=== PATIENT | male | born 1985 | race Caucasian/White ===

== ENCOUNTER 2018-03-20 20:00 | Emergency (ER) | payer OTHER ==
[2018-03-20] MEDS ORDERED: Sodium Chloride 0.9% 10 ML Syringe FLUSH PRN (20:22)
[2018-03-20] MEDS ORDERED: Ondansetron 4 MG/2 ML SDV IVPUSH ONE (20:28)
[2018-03-20] MEDS ORDERED: Sodium Chloride 0.9% 1,000 ML IV SCH (20:55)
[2018-03-20 21:07] LABS: CHLORIDE,CL 101 mmol/L (98-107); SODIUM,NA 138 mmol/L (136-145)
--- NOTE | 2018-03-20 21:52 | EDM.PDOC ---
ED HPI GENERAL MEDICAL PROBLEM - General Chief Complaint: General Stated Complaint: dizziness Time Seen by Provider: 03/20/18 20:10 Source of Information: Reports: Patient History Limitations: Reports: No Limitations - History of Present Illness INITIAL COMMENTS - FREE TEXT/NARRATIVE: Patient is a 32-year-old year who is seen in the ER with chief complaint of left ear right ear pain unable to hear vertebral and severe nausea this been going on for 3 days patient what was seen 3 days ago by the chiropractor and neck manipulation was done according to patient Onset: Gradual Duration: Day(s): (3 days), Getting Worse Location: Reports: Head, Generalized Quality: Reports: Ache, Same as Previous Episode (Approximately 6 months ago) Severity: Moderate Improves with: Reports: Medication, Rest Worsens with: Reports: None Context: Reports: Other (Viral illness) Associated Symptoms: Reports: Nausea/Vomiting 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 [No Known Home Meds] 03/20/18 [History] Past Medical History - Past Surgical History HEENT Surgical History: Reports: Oral Surgery Social & Family History - Tobacco Use Smoking Status *Q: Former Smoker Used Tobacco, but Quit: Yes Month/Year Tobacco Last Used: 2007 ED ROS GENERAL - Review of Systems Review Of Systems: See Below Constitutional: Reports: No Symptoms HEENT: Reports: Other (Tinnitus) Respiratory: Reports: Shortness of Breath, Cough Cardiovascular: Reports: No Symptoms Endocrine: Reports: No Symptoms GI/Abdominal: Reports: Nausea : Reports: No Symptoms Musculoskeletal: Reports: No Symptoms Skin: Reports: No Symptoms Neurological: Reports: No Symptoms ED EXAM, GENERAL - Physical Exam Exam: See Below Exam Limited By: No Limitations General Appearance: Alert, WD/WN, No Apparent Distress Eye Exam: Bilateral Eye: EOMI, PERRL Ears: Normal External Exam, Hearing Loss Ear Exam: Right Ear: Swelling, Tenderness, TM Red, TM Bulging Nose: Normal Inspection, Normal Mucosa, No Blood Throat/Mouth: Normal Inspection, Normal Lips, Normal Teeth, Normal Gums, Normal Oropharynx, Normal Voice, No Airway Compromise Head: Atraumatic, Normocephalic Neck: Normal Inspection, Supple, Non-Tender, Full Range of Motion Respiratory/Chest: No Respiratory Distress, Lungs Clear, Normal Breath Sounds, No Accessory Muscle Use, Chest Non-Tender Cardiovascular: Normal Peripheral Pulses, Regular Rate, Rhythm, No Edema, No Gallop, No JVD, No Murmur, No Rub GI/Abdominal: Normal Bowel Sounds, Soft, Non-Tender, No Organomegaly, No Distention, No Abnormal Bruit, No Mass (Male) Exam: Deferred Rectal (Males) Exam: Deferred Back Exam: Normal Inspection, Full Range of Motion, NT Extremities: Normal Inspection, Normal Range of Motion, Non-Tender, Normal Capillary Refill, No Pedal Edema Neurological: Alert, Oriented, CN II-XII Intact, Normal Cognition, Normal Gait, Normal Reflexes, No Motor/Sensory Deficits Psychiatric: Normal Affect, Normal Mood Course - Vital Signs Last Recorded V/S: Last Vital Signs Temp 97.5 F 03/20/18 20:01 Pulse 80 03/20/18 20:14 Resp 18 03/20/18 20:14 BP 137/83 03/20/18 20:14 Pulse Ox 100 03/20/18 20:14 - Orders/Labs/Meds Orders: Active Orders 24 hr Category Date Time Status CULTURE BLOOD [BC] Stat Lab 03/20/18 20:30 Received CULTURE BLOOD [BC] Stat Lab 03/20/18 20:37 Received Sodium Chloride 0.9% [Saline Flush] Med 03/20/18 20:22 Active 10 ml FLUSH ASDIRECTED PRN Blood Culture x2 Reflex Set [OM.PC] Stat Oth 03/20/18 20:21 Ordered Saline Lock Insert [OM.PC] Stat Oth 03/20/18 20:22 Ordered Medication Orders Sodium Chloride (Saline Flush) 10 ml FLUSH ASDIRECTED PRN PRN Reason: Keep Vein Open Labs: Laboratory Tests 03/20/18 03/20/18 Range/Units 20:30 20:30 WBC 8.2 (4.0-10.2) K/uL RBC 5.35 (4.33-5.41) M/uL Hgb 16.5 (13.1-16.8) g/dL Hct 46.8 (39.0-49.0) % MCV 87.5 (84.0-98.0) fL MCH 30.8 (28.2-33.3) pg MCHC 35.3 (31.7-36.0) g/dL RDW 12.2 (11.2-14.1) % Plt Count 241 (150-350) K/uL Neut % (Auto) 73.6 (45.0-80.0) % Lymph % (Auto) 17.8 (10.0-50.0) % [place] % (Auto) 7.4 (2.0-14.0) % Eos % (Auto) 1.0 (0.0-5.0) % Baso % (Auto) 0.2 (0.0-2.0) % Neut # (Auto) 6.04 (1.40-7.00) K/uL Lymph # (Auto) 1.46 (0.50-3.50) K/uL [place] # (Auto) 0.61 (0.00-1.00) K/uL Eos # (Auto) 0.08 (0.00-0.50) K/uL Baso # (Auto) 0.02 (0.00-0.20) K/uL Sodium 138 (136-145) mmol/L Potassium 3.7 (3.5-5.1) mmol/L Chloride 101 (98-107) mmol/L Carbon Dioxide 27.9 (21.0-32.0) mmol/L BUN 9 (7-18) mg/dL Creatinine 0.71 (0.51-1.17) mg/dL Est Cr Clr Drug Dosing 181.83 mL/min Estimated GFR (MDRD) > 60 mL/min Glucose 103 (74-106) mg/dL Calcium 9.5 (8.5-10.1) mg/dL Meds: Medications Generic Name Dose Route Start Last Admin Trade Name Freq PRN Reason Stop Dose Admin Sodium Chloride 10 ml 03/20/18 20:22 Saline Flush FLUSH ASDIRECTED PRN Keep Vein Open Discontinued Medications Generic Name Dose Route Start Last Admin Trade Name Freq PRN Reason Stop Dose Admin Ondansetron HCl 8 mg 03/20/18 20:28 Zofran IVPUSH 03/20/18 20:29 ONETIME ONE Departure - Departure Time of Disposition: 21:54 Disposition: Home, Self-Care 01 Condition: Fair Clinical Impression: Right acute otitis media - Discharge Information Instructions: Otitis Media, Adult, [id number] Referrals: Frank Fernandes MD [Primary Care Provider] - Forms: ED Department Discharge Care Plan Goals: Patient will be sent home on prednisone 20 mg twice a day for 5 days I will start him on Zofran for nausea 4 mg every 6-8 hours as needed and Augmentin 875 twice a day for 10 days - Problem List & Annotations (1) Viral illness SNOMED Code(s): 13657699 Code(s): B34.9 - VIRAL INFECTION, UNSPECIFIED Status: Acute Current Visit : Yes - Problem List Review Problem List Initiated/Reviewed/Updated: Yes - My Orders Last 24 Hours: My Active Orders 03/20/18 20:21 Blood Culture x2 Reflex Set [OM.PC] Stat 03/20/18 20:22 Sodium Chloride 0.9% [Saline Flush] 10 ml FLUSH ASDIRECTED PRN Saline Lock Insert [OM.PC] Stat 03/20/18 20:30 CULTURE BLOOD [BC] Stat 03/20/18 20:37 CULTURE BLOOD [BC] Stat - Assessment/Plan Last 24 Hours: My Active Orders 03/20/18 20:21 Blood Culture x2 Reflex Set [OM.PC] Stat 03/20/18 20:22 Sodium Chloride 0.9% [Saline Flush] 10 ml FLUSH ASDIRECTED PRN Saline Lock Insert [OM.PC] Stat 03/20/18 20:30 CULTURE BLOOD [BC] Stat 03/20/18 20:37 CULTURE BLOOD [BC] Stat Plan: Patient has otitis media treated with Augmentin 875 twice a day would plus will start him on prednisone because of the swelling 20 mg twice a day for 5 days Zofran 8 mg 1 tablet every 6 hours follow-up in the clinic
== END 2018-03-20 22:30 | disposition home or self-care (01) ==
LOC: LL.ED 20:00
DX: H66.91 Otitis media, unspecified, right ear (principal); Z87.891 Personal history of nicotine dependence
CPT/HCPCS: 36415; 80048; 85025; 87040; 96361; 96374; 99283; J2405; J7030

== ENCOUNTER 2023-04-03 15:40 | Emergency (ER) | payer BC ==
[2023-04-03] MEDS ORDERED: Sodium Chloride 0.9% 10 ML Syringe FLUSH PRN (16:17)
[2023-04-03 16:41] LABS: BASOPHILS ABSOLUTE AUTO 0.03 K/uL (0.00-0.20); BASOPHILS PERCENT AUTO 0.4 % (0.0-2.0); EOSINOPHILS ABSOLUTE AUTO 0.02 K/uL (0.00-0.50); EOSINOPHILS PERCENT AUTO 0.2 % (0.0-5.0); HEMATOCRIT 46.3 % (39.0-49.0); HEMOGLOBIN 16.3 g/dL (13.1-16.8); LYMPHOCYTES ABSOLUTE AUTO 3.07 K/uL (0.50-3.50); LYMPHOCYTES PERCENT AUTO 38.2 % (10.0-50.0); MEAN CORPUSCULAR HEMOGLOBIN 29.3 pg (28.2-33.3); MEAN CORPUSCULAR HGB CONC 35.2 g/dL (31.7-36.0); MEAN CORPUSCULAR VOLUME 83.1 fL (84.0-98.0); MONOCYTES PERCENT AUTO 8.7 % (2.0-14.0); NEUTROPHILS ABSOLUTE AUTO 4.22 K/uL (1.40-7.00); NEUTROPHILS PERCENT AUTO 52.5 % (45.0-80.0); PLATELET COUNT,PLT 330 K/uL (150-350); RED BLOOD CELL COUNT 5.57 M/uL (4.33-5.41); RED CELL DISTRIBUTION WIDTH 13.3 % (11.2-14.1)
[2023-04-03 16:46] LABS: APPEARANCE,URINE CLEAR; BILIRUBIN,URINE NEGATIVE (NEGATIVE); COLOR,URINE YELLOW; GLUCOSE,URINE NEGATIVE (NEGATIVE); KETONES,URINE NEGATIVE (NEGATIVE); LEUKOCYTE ESTERASE,URINE NEGATIVE (NEGATIVE); NITRITE,URINE NEGATIVE (NEGATIVE); OCCULT BLOOD,URINE TRACE-INTACT (NEGATIVE); PROTEIN,URINE NEGATIVE (NEGATIVE); UROBILINOGEN,URINE 0.2 E.U./dL (0.2-1.0)
[2023-04-03] MEDS: Sodium Chloride 0.9% 1,000 ML IV ONE (16:49)
[2023-04-03 17:03] LABS: ALBUMIN 4.7 g/dL (3.4-5.0); BILIRUBIN TOTAL 0.8 mg/dL (0.2-1.0); CALCIUM 8.8 mg/dL (8.5-10.1); CARBON DIOXIDE,CO2 26.4 mmol/L (21.0-32.0); CREATININE 0.81 mg/dL (0.51-1.17); EST CRCL DRUG DOSING (CG) 152.13 mL/min; POTASSIUM,K 3.4 mmol/L (3.5-5.1); PROTEIN TOTAL,TP 8.4 g/dL (6.4-8.2)
[2023-04-03 17:04] LABS: BACTERIA,URINE NOT SEEN /HPF (NONE TO FEW); EPITHELIAL CELLS,URINE RARE /LPF; MUCUS,URINE NOT SEEN /LPF (NEGATIVE); RBC,URINE 0-5 /HPF; WBC,URINE NOT SEEN /HPF
== END 2023-04-03 18:10 | disposition home or self-care (01) ==
LOC: LL.ED 15:40
DX: E86.0 Dehydration (principal); F41.9 Anxiety disorder, unspecified; Z88.8 Allergy status to other drugs, medicaments and biological substances
CPT/HCPCS: 36415; 80053; 81001; 85025; 93005; 93010; 96360; 99284; 99285-25; J7030